=== PATIENT | male | born 1985 | race African-American/Black ===

== ENCOUNTER 2020-07-29 01:38 | Emergency (ER) | payer MEDICARE, OTHER ==
[~2020-07-29] VITALS: Ht 182.9 cm; Wt 136.1 kg
[2020-07-29 01:38] VITALS: BP 172/115
--- NOTE | 2020-07-29 01:53 | NUR ---
DR WHEELER AT BEDSIDE FOR EVAL
[2020-07-29] MEDS ORDERED: LORAZEPAM 0.5 MG TABLET ONE (01:56)
[2020-07-29] MEDS ORDERED: LORAZEPAM 1 MG TABLET PO ONE (02:00)
--- NOTE | 2020-07-29 03:01 | NUR ---
PT OK TO DISCHARGE PER DR WHEELER. Patient discharged to home in stable condition. Written and verbal after care instructions given. Patient verbalizes understanding of instruction.Patient is awake and alert to self, day, and place. PT ambulatory with a steady gait
== END 2020-07-29 03:47 | disposition home or self-care (01) ==
LOC: ER 01:42
DX: F41.9 Anxiety disorder, unspecified (principal); F31.9 Bipolar disorder, unspecified